=== PATIENT | female | born 1960 | race American Indian/Alaskan Native ===

== ENCOUNTER 2019-03-07 21:09 | Emergency (ER) | payer MEDICARE ==
[2019-03-08] MEDS ORDERED: diphenhydrAMINE 25 MG CAP PO ONE (01:13)
[2019-03-08] MEDS ORDERED: FAMOTIDINE 20 MG TAB PO ONE (01:13)
[2019-03-08] MEDS ORDERED: predniSONE 20 MG TAB PO ONE (01:13)
--- NOTE | 2019-03-08 01:24 | Emergency Department Report ---
ED General Adult HPI - General Chief complaint: Neuro Symptoms/Deficit Stated complaint: FACIAL SWALLOWING/POSS ALLERGIC REACTION Time Seen by Provider: 03/08/19 01:12 Source: patient Mode of arrival: Ambulatory Limitations: No Limitations - History of Present Illness Initial comments: Is a 58-year-old female past medical history of diabetes who presents with left lip numbness. Patient was recently diagnosed with Santiago's palsy but she felt some pressure on her cheek. Patient is not having any more numbness or any change in sensation but she was concerned so she came to the emergency department her symptoms are mild eating sauerkraut makes them worse nothing makes it better. - Related Data Home Medications Medication Instructions Recorded Confirmed Last Taken Canagliflozin (Nf) [Invokana] 300 mg PO DAILY 05/24/13 05/24/13 Unknown Insulin Lispro Prot/Lispro 50 units SQ BID 05/24/13 05/24/13 Unknown [Humalog Mix 75/25] Simvastatin (Nf) [Zocor TAB] 40 mg PO DAILY 05/24/13 05/24/13 Unknown atenoloL [Tenormin] 50 mg PO DAILY 05/24/13 05/24/13 Unknown cloNIDine [Catapres] 0.1 mg PO BID 05/24/13 05/24/13 Unknown glipiZIDE [glipiZIDE XL] 10 mg PO BID 05/24/13 05/24/13 Unknown hydrALAZINE [Apresoline TAB] 25 mg PO DAILY 05/24/13 05/24/13 Unknown Previous Rx's Medication Instructions Recorded Last Taken Type cloNIDine [Catapres] 0.2 mg PO BID #20 tablet 05/24/13 Unknown Rx predniSONE [Deltasone] 20 mg PO QDAY #24 tab 03/08/19 Unknown Rx Allergies Allergy/AdvReac Type Severity Reaction Status Date / Time metformin Allergy Mild Unknown Verified 05/24/13 15:48 aspirin Allergy Swelling Verified 05/24/13 12:41 ED Review of Systems ROS: Stated complaint: FACIAL SWALLOWING/POSS ALLERGIC REACTION Other details as noted in HPI Constitutional: denies: chills, fever Eyes: denies: eye pain, eye discharge, vision change ENT: as per HPI. denies: ear pain, throat pain Respiratory: denies: cough, shortness of breath, wheezing Cardiovascular: denies: chest pain, palpitations Endocrine: no symptoms reported Gastrointestinal: denies: abdominal pain, nausea, diarrhea Genitourinary: denies: urgency, dysuria, discharge Musculoskeletal: denies: back pain, joint swelling, arthralgia Skin: denies: rash, lesions Neurological: denies: headache, weakness, paresthesias Psychiatric: denies: anxiety, depression Hematological/Lymphatic: denies: easy bleeding, easy bruising ED Past Medical Hx - Past Medical History Previous Medical History?: Yes Hx Hypertension: Yes Hx Dementia: Yes - Surgical History Additional Surgical History: Hysterectomy in 2009, Left eye Surgery, - Social History Smoking Status: Never Smoker Substance Use Type: Alcohol - Medications Home Medications: Home Medications Medication Instructions Recorded Confirmed Last Taken Type Canagliflozin (Nf) [Invokana] 300 mg PO DAILY 05/24/13 05/24/13 Unknown History Insulin Lispro Prot/Lispro 50 units SQ BID 05/24/13 05/24/13 Unknown History [Humalog Mix 75/25] Simvastatin (Nf) [Zocor TAB] 40 mg PO DAILY 05/24/13 05/24/13 Unknown History atenoloL [Tenormin] 50 mg PO DAILY 05/24/13 05/24/13 Unknown History cloNIDine [Catapres] 0.1 mg PO BID 05/24/13 05/24/13 Unknown History cloNIDine [Catapres] 0.2 mg PO BID #20 tablet 05/24/13 Unknown Rx glipiZIDE [glipiZIDE XL] 10 mg PO BID 05/24/13 05/24/13 Unknown History hydrALAZINE [Apresoline TAB] 25 mg PO DAILY 05/24/13 05/24/13 Unknown History predniSONE [Deltasone] 20 mg PO QDAY #24 tab 03/08/19 Unknown Rx ED Physical Exam - General Limitations: No Limitations General appearance: alert, in no apparent distress - Head Head exam: Present: atraumatic, normocephalic - Eye Eye exam: Present: normal appearance - ENT ENT exam: Present: mucous membranes moist, other (left sided facial swelling cranial nerve) - Neck Neck exam: Present: normal inspection - Respiratory Respiratory exam: Present: normal lung sounds bilaterally. Absent: respiratory distress - Cardiovascular Cardiovascular Exam: Present: regular rate, normal rhythm. Absent: systolic murmur, diastolic murmur, rubs, gallop - GI/Abdominal GI/Abdominal exam: Present: soft, normal bowel sounds - Extremities Exam Extremities exam: Present: normal inspection - Back Exam Back exam: Present: normal inspection - Neurological Exam Neurological exam: Present: alert, oriented X3 - Psychiatric Psychiatric exam: Present: normal affect, normal mood - Skin Skin exam: Present: warm, dry, intact, normal color. Absent: rash ED Course Vital Signs 03/07/19 21:22 Temperature 98.6 F Pulse Rate 80 Respiratory 18 Rate Blood Pressure 220/99 O2 Sat by Pulse 98 Oximetry ED Medical Decision Making - Medical Decision Making Chief medical diagnosis: Santiago's palsy Differential medical diagnosis: Allergic reaction, facial palsy Patient does not have an ischemic stroke patient would not benefit from any neuro imaging. Patient was recently seen by diagnosis of Santiago's palsy. However she had left eye surgery and noticed that she had some left cheek swelling. After eating sauerkraut. Patient was just concerned and wanted to come back to the ER. Patient is in no distress fall signs are within normal limits patient has intact sensation all throughout her face. I will give patient prednisone to go home with and Justus. The prednisone will treat her Santiago's palsy symptoms and she can follow-up with her primary care doctor. Additional verbal discharge instructions were given to the patient. Critical care attestation.: If time is entered above; I have spent that time in minutes in the direct care of this critically ill patient, excluding procedure time. ED Disposition Clinical Impression: Santiago's palsy Disposition: DC-01 TO HOME OR SELFCARE Is pt being admited?: No Does the pt Need Aspirin: No Condition: Stable Instructions: Santiago Palsy (ED) Prescriptions: predniSONE [Deltasone] 20 mg PO QDAY #24 tab Referrals: HOLLIE NATARAJAN DO [Staff Physician] - 3-5 Days
[2019-03-08 03:10] VITALS: BP 165/75
== END 2019-03-08 02:35 | disposition home or self-care (01) ==
LOC: ED 21:09
DX: G51.0 Bell's palsy (principal); I10 Essential (primary) hypertension; F03.90 Unspecified dementia, unspecified severity, without behavioral disturbance, psychotic disturbance, mood disturbance, and anxiety; Z90.710 Acquired absence of both cervix and uterus; Z79.899 Other long term (current) drug therapy; Z88.6 Allergy status to analgesic agent
CPT/HCPCS: 82962; 99283; J7512